=== PATIENT | female | born 1940 | race Caucasian/White ===

== ENCOUNTER 2016-04-26 14:52 | Emergency (ER) | payer MEDICARE, OTHER ==
[2016-04-26] MEDS ORDERED: NITROGLYCERIN 0.4 MG TAB.SUBL SUBLINGUAL ONE (15:13)
[2016-04-26] MEDS ORDERED: NITROGLYCERIN OINT 1 GM PACKET ONE (15:13)
[2016-04-26 15:16] LABS: BASOPHIL# 0.1 X 10^3uL (0.0-0.1); BASOPHILS 0.8 % (0.0-2.0); EOSINOPHILS 1.1 % (0.0-6.0); EOSINOPHILS# 0.1 X 10^3uL (0.0-0.4); HEMATOCRIT 40.5 % (36.0-48.0); HEMOGLOBIN 13.6 g/dL (12.0-16.0); LYMPHOCYTES 44.7 % (20.0-40.0); LYMPHOCYTES# 2.9 X 10^3uL (0.8-3.8); MEAN CELL VOLUME 89.1 fL (84.0-102.0); MEAN CORPUS. HGB CONCENTRATION 33.6 g/dL (32.0-36.0); MEAN CORPUSCULAR HEMOGLOBIN 29.9 pg (29.0-35.0); MEAN PLATELET VOLUME 8.4 fL (7.4-10.4); MONOCYTES 10.4 % (2.0-10.0); MONOCYTES# 0.7 X 10^3uL (0.2-1.0); NEUTROPHILS# 2.8 X 10^3uL (2.6-6.7); PLATELET COUNT 297 X 10^3uL (130-440); RED BLOOD COUNT 4.55 X 10^6uL (4.20-6.10); RED CELL DISTRIBUTION WIDTH 12.6 % (11.5-14.5); WHITE BLOOD COUNT 6.6 X 10^3uL (3.9-10.7)
[2016-04-26] MEDS ORDERED: MORPHINE SULFATE 2 MG/ML SYR ONE (15:24)
[2016-04-26] MEDS ORDERED: ONDANSETRON HCL 4 MG/2 ML VIAL ONE (15:24)
[2016-04-26] MEDS ORDERED: HYDROmorphone HCL 1 MG/ML SYR ONE ×3 (15:49→18:40)
[2016-04-26 16:04] LABS: BLOOD UREA NITROGEN 23 mg/dL (7-17); CALCIUM 9.3 mg/dL (8.4-10.2); CHLORIDE 106 mmol/L (98-107); CREATININE 0.8 mg/dL (0.5-1.0); EST GLOMERULAR FILTRATION RATE > 60 mL/min; GLUCOSE 109 mg/dL (70-100); MAGNESIUM 2.3 mg/dL (1.6-2.3); POTASSIUM 3.5 mmol/L (3.5-5.1); SODIUM 144 mmol/L (137-145)
[2016-04-26 16:05] LABS: ALBUMIN 4.3 g/dL (3.5-5.0); ALKALINE PHOSPHATASE 84 U/L (38-126); ALT 58 U/L (9-52); AST 95 U/L (14-36); BILIRUBIN, DIRECT 0.3 mg/dL (0.0-0.4); BILIRUBIN, TOTAL 0.7 mg/dL (0.2-1.3); TOTAL PROTEIN 7.4 g/dL (6.3-8.2); TROPONIN I < 0.012 ng/mL (0.00-0.034)
[2016-04-26 16:21] LABS: LIPASE 6912 U/L (23-300)
--- NOTE | 2016-04-26 18:05 | RADIOLOGY REPORT ---
A limited single portable view of the chest is compared with the prior film dated 06/11/2013. The heart, vessels and lungs are stable and unremarkable. No infiltrate, fluid or pneumothorax is seen. IMPRESSION: Unremarkable limited single portable view of the chest. MTDD
--- NOTE | 2016-04-26 18:13 | CT REPORT ---
HISTORY: Right upper quadrant abdominal pain. Elevated liver function studies. TECHNIQUE: Multiphase CT of the abdomen was performed after the uneventful administration of 97 mL of Isovue-370. FINDINGS: Lung Bases: The lung bases are clear. Liver: The liver size is within normal limits. There is no contrast-enhancing mass. Intrahepatic biliary ducts are mildly dilated. Gallbladder: There is hydrops of the gallbladder. There are multiple calcified stones layering out in the dependent portion of the gallbladder. No evidence of cholecystitis. Common bile duct is dilated measuring 8 to 9 mm in diameter. No definite intraluminal filling defect is identified but a noncalcified gallstone may not be apparent. Spleen: The spleen is normal in appearance. Pancreas: There is uniform enhancement of the pancreas. Pancreatic duct is not dilated. There is diffuse peripancreatic edema and fat stranding consistent with pancreatitis. No evidence of phlegmon. There is normal enhancement of the celiac axis, splenic artery and vein. No calcifications. Kidneys: The kidneys are normal in size. No renal mass is identified. There is no hydronephrosis. Adrenals: There are no adrenal masses. Vasculature: Abdominal aorta and IVC are unremarkable. No periaortic mass or adenopathy. GI Tract: There is a large volume of retained stool throughout the colon. No free air pneumatosis. No evidence of obstruction. Retroperitoneal: No significant lymphadenopathy or ascites is identified. Bony Structures: Visualized bony structures are unremarkable in appearance. IMPRESSION: 1. Cholelithiasis. 2. Hydrops of the gallbladder. 3. Dilated intra and extrahepatic dilated ducts. The common bile duct measures up to 9 mm in diameter. 4. Pancreatitis. Findings reviewed with Dr. Mcknight at 5:15 PM. Final Electronic Signature: This report was electronically signed by Glen Black MD on 04/26/2016 5:14 PM. [email or web address] / MARK
--- NOTE | 2016-04-26 18:49 | ER NURSING DOCUMENTATION ---
Nurse's Notes [facility] Name:Nadiya Chong Age:75 yrs Sex:Female :1940 Arrival Date:04/26/2016 Time:14:52 BedTrauma C Private MD:Hayes Wells Diagnosis:Pancreatitis, Acute;Cholelithiasis With Obstruction Presentation: 04/26 14:53 Notified ED Physician of Dr. Mcknight notified. la 14:54 Presenting complaint: Patient states: chest pain for 30 mins. Transition of care: Home. cb AIR CAT ACTIVATION no. Asprin Given Taken by pt sea captain 325 mg po. 14:54 Method Of Arrival: Private Vehicle cb 14:54 Acuity: LOGAN 2 cb 15:29 Risk considerations: negative evaluation for symptoms or risks of deep vein thrombosis cb or pulmonary embolism. Triage Assessment: 15:06 General: Appears in no apparent distress, well groomed, Behavior is cooperative. Pain: cb Complains of pain in diaphragm and xyphoid area Pain radiates to diaphragm Pain currently is 4 out of 10 on a pain scale. EENT: No deficits noted. Neuro: Level of Consciousness is awake, alert, Oriented to person, place, time. Cardiovascular: Pulses are 2+ in right radial artery Rhythm is regular. 15:06 Respiratory: Airway is patent Trachea midline Respiratory effort is even, unlabored, cb Respiratory pattern is regular, symmetrical, Breath sounds are clear bilaterally. 15:06 GI: Denies nausea. : No deficits noted. Derm: No deficits noted. Musculoskeletal: No cb deficits noted. Historical: - Allergies: No known drug Allergies; - Home Meds: 1. vitmains - PMHx: OSTEOARTHRITIS; - PSHx: arthroscopy of knee; - Tetanus: < 10 years. - Ebola Screening: : Patient negative for fever greater than or equal to 101.5 degrees Fahrenheit, and additional compatible Ebola Virus Disease symptoms. Patient denies exposure to infectious person. Patient denies travel to an Ebola-affected area in the 21 days before illness onset. No symptoms or risks identified at this time. . - Immunization history: Flu Vaccine < 1 year. - Social history: Smoking status: Patient states was never smoker of tobacco. Screenin:30 Infectious Disease Risk None. Abuse screen: Denies threats or abuse. Denies injuries cb from another. Nutritional screening: On vegetarian. Assessment: 14:55 Pain: Pain began 30 min ago. cb 15:58 Cardiovascular: Rhythm is sinus rhythm with unifocal PVCs. cb Vital Signs: 14:56 BP 180 / 80 Sitting; Pulse 76 MON; Resp 20 S; Temp 97.5(O); Pulse Ox 95% on R/A; Weight cb 64.41 kg; Height 5 ft. 6 in. (167.64 cm); Pain 4/10; 15:06 BP 187 / 80; Pulse 79; Resp 23; Pulse Ox 94% on R/A; cb 15:13 BP 133 / 87; Pulse 80; Resp 19; cb 15:20 BP 142 / 70; Pulse 61; Resp 15; Pulse Ox 96% 2 lpm ; cb 15:25 BP 147 / 72; Pulse 57; Resp 16; Pulse Ox 97% on 2 lpm NC; cb 15:45 BP 152 / 66; Pulse 65; Resp 17; Pulse Ox 99% 2 lpm ; cb 16:00 BP 145 / 59; Pulse 64; Resp 15; Pulse Ox 99% on 2 lpm NC; cb 16:15 BP 147 / 63; Pulse 65; Resp 17; Pulse Ox 98% on 2 lpm NC; cb 16:30 BP 149 / 65; Pulse 70; Resp 17; Pulse Ox 98% on 2 lpm NC; cb 17:00 BP 150 / 64; Pulse 72; Resp 18; cb 17:15 BP 154 / 62; Pulse 66; Resp 19; cb 17:30 BP 155 / 60; Pulse 63; Pulse Ox 97% on 2 lpm NC; cb 17:58 BP 157 / 58; Pulse 63; Resp 18; Pulse Ox 97% on 2 lpm NC; cb 18:25 BP 155 / 58; Pulse 63; Pulse Ox 96% on 2 lpm NC; cb 14:56 Body Mass Index 22.92 (64.41 kg, 167.64 cm) cb Tignall Coma Score: 16:06 Eye Response: spontaneous(4). Verbal Response: oriented(5). Motor Response: obeys cd commands(6). Total: 15. ED Course: 14:53 Patient arrived in ED. hb 14:53 Hayes Wells MD is Private Physician. hb 14:53 EKG done. (by ED staff). Reviewed by Lennox Mcknight MD. cb 14:54 Serena Luong, RN is Primary Nurse. cb 14:55 Triage completed. cb 15:00 Inserted saline lock: 20 gauge in right antecubital area and blood collected. la 15:00 Labs drawn. (by ED staff). Sent per order to lab. cb 15:07 Lennox Mcknight MD is Attending Physician. cd 15:10 Oxygen Oxygen administration via nasal cannula @ 2L/min. cb 15:11 Inserted saline lock: 20 gauge in right hand. la 15:15 Port Xray Completed. ernesto 15:31 Valuables Remains with patient Patient has correct armband on for positive cb identification. Placed in gown. Bed in low position. Call light in reach. desk monitor on. Pulse ox on. NIBP on. Lights dimmed. Diet: Patient is NPO. 16:[address] tt 17:01 EKG attached cb Administered Medications: 15:05 Drug: Nitroglycerin 0.4 mg; Route: Sublingual; cb 15:43 Follow up: Response: Pain is unchanged, physician notified cb 15:07 CANCELLED (Physician Discretion): Nitroglycerin Ointment 2 % 0.5 inches Transdermal oncecd 15:22 Drug: Zofran 4 mg; Route: IVP; Infused Over: 2 mins; Site: right antecubital; cb 16:22 Follow up: Response: No adverse reaction cb 15:25 Drug: morphine 1 mg; Route: IVP; Site: right antecubital; cb 15:43 Follow up: Response: Pain is unchanged, physician notified cb 15:28 Not Given (Physician Discretion): Nitroglycerin Ointment 2 % 1 inches Transdermal once cb 15:44 Drug: Dilaudid 0.5 mg; Route: IVP; Site: right antecubital; cb 16:20 Follow up: Response: Pain is decreased cb 15:45 Drug: NS 0.9% 500 ml; Route: IV; Rate: bolus; Site: right antecubital; cb 17:19 Follow up: IV Status: Infusion discontinued; IV Intake: 500ml cb 16:10 Drug: Dilaudid 0.5 mg; Route: IVP; Site: right antecubital; cb 16:22 Follow up: Response: Pain is decreased cb 17:26 Drug: Dilaudid 0.5 mg; Route: IVP; Site: right antecubital; cb 17:58 Follow up: Response: Pain is decreased cb 18:36 Drug: Dilaudid 0.5 mg; Route: IVP; Site: right antecubital; cb 18:40 Follow up: Response: No adverse reaction cb Intake: 17:19 IV: 500ml; Total: 500ml. cb Outcome: 17:44 ER care complete, transfer ordered by . reanna 18:38 Condition: stable cb 18:38 Discharge instructions given to patient, Instructed on need for transfer Demonstrated understanding of instructions. 18:48 Patient left the ED. cb 18:49 [facility] Time: April 26, 2016 at 17:44 Patient's face sheet was faxed to accepting facility. Face Sheet included patient's name, address, age, gender, contact information and insurance information. Patient will be transported by: [facility] ground. Report called to: JAMEE Harris Nurse and Physician Charting and Notes were sent to Accepting Facility. All tests and/or procedures with results, if applicable, were sent to accepting facility. 18:49 Report given to JAMEE Harris cb Signatures: Serena Luong RN RN Lennox Pablo MD MD cd Terriere, Tracy tt Bird, Heather hb Abbott, Annabelle Becker, Sirisha narvaez
--- NOTE | 2016-04-26 18:49 | ER PHYSICIAN DOCUMENTATION ---
Physician Documentation [facility] Name:Nadiya Chong Age:75 yrs Sex:Female :1940 Arrival Date:04/26/2016 Time:14:52 BedTrauma C Private MD:Hayes Wells ED, Chris Disposition: 04/26 17:43 Critical Care: not applicable. cd Disposition: 04/26/16 17:44 Transfer ordered to [facility]. Diagnosis are Pancreatitis, Acute, Cholelithiasis With Obstruction. - Reason for transfer: Specialty. - Accepting physician is Dr. Timothy Ardon [facility] Hospitalist. - Condition is Good. - Problem is new. - Symptoms have improved. COBRA Form completed? Yes Transfer - Mode of Transportation Ambulance HPI: 15:05 This 75 yrs old Female presents to ER via Private Vehicle with complaints of cd Chest Pain. 15:05 The patient or guardian reports chest pain that is located primarily in the epigastric cd area. Onset: acutely, 30 minute(s) ago. The pain does not radiate. There has been no movement of pain. Associated signs and symptoms: Pertinent positives: abdominal pain, diaphoresis, Pertinent negatives: cough, lower extremity pain, lower extremity swelling, nausea, near syncope, palpitations, recent travel, shortness of breath, syncope, vomiting. The chest pain is described as aching, a pressure. Duration: The patient or guardian reports a single episode, that is still ongoing. Modifying factors: The symptoms are alleviated by nothing. the symptoms are aggravated by palpation of area, to her RUQ. Severity of pain: At its worst the pain was moderate in the emergency department the pain is unchanged. Risk factors for coronary artery disease include: This patient does not have any risk factors for coronary artery disease. The patient has not experienced similar symptoms in the past. Historical: - Allergies: No known drug Allergies; - Home Meds: 1. vitmains - PMHx: OSTEOARTHRITIS; - PSHx: arthroscopy of knee; - Tetanus: < 10 years. - Ebola Screening: : Patient negative for fever greater than or equal to 101.5 degrees Fahrenheit, and additional compatible Ebola Virus Disease symptoms. Patient denies exposure to infectious person. Patient denies travel to an Ebola-affected area in the 21 days before illness onset. No symptoms or risks identified at this time. . - Immunization history: Flu Vaccine < 1 year. - Social history: Smoking status: Patient states was never smoker of tobacco. ROS: 15:35 All other systems are negative. cd 16:04 ENT: Negative for injury, pain, epistaxis and discharge. cd Neck: Negative for injury, pain, stiffness and swelling. Back: Negative for injury, pain or muscle spasms. : Negative for injury, bleeding, discharge, dysuria, frequency, urgency and swelling. MS/Extremity: Negative for injury, deformity, edema, calf tenderness, pain or coldness. Skin: Negative for injury, rash, itching and discoloration. 16:04 Neuro: Negative for headache, weakness, numbness, tingling, and seizure. cd 16:04 Constitutional: Negative for body aches, chills, fever, poor PO intake. 16:04 Cardiovascular: Positive for chest pain, Negative for edema, orthopnea, palpitations. 16:04 Respiratory: Negative for cough, dyspnea on exertion, hemoptysis, pleurisy, shortness of breath, wheezing. 16:04 Abdomen/GI: Positive for abdominal pain, anorexia, Negative for nausea, vomiting, abdominal cramps, abdominal distension, hematemesis, black/tarry stool, rectal bleeding. Exam: Head/Face: Normocephalic, atraumatic. Eyes: Pupils equal round and reactive to light, extra-ocular motions intact. Lids and lashes normal. Conjunctiva and sclera are non-icteric and not injected. Cornea within normal limits. Periorbital areas with no swelling, redness, or edema. ENT: Nares patent. No nasal discharge, no septal abnormalities noted. Tympanic membranes are normal and external auditory canals are clear. Oropharynx with no redness, swelling, or masses, exudates, or evidence of obstruction, uvula midline. Mucous membranes moist. Neck: Trachea midline, no thyromegaly or masses palpated, and no cervical lymphadenopathy. Supple, full range of motion without nuchal rigidity, or vertebral point tenderness. No Meningismus. Chest/axilla: Normal chest wall appearance and motion. Nontender with no deformity. No lesions are appreciated. Back: No spinal tenderness. No costovertebral tenderness. Full range of motion. Skin: Warm, dry with normal turgor. Normal color with no rashes, no lesions, and no evidence of cellulitis. MS/ Extremity: Pulses equal, no cyanosis. Neurovascular intact. Full, normal range of motion. 16:06 Neuro: Awake and alert, GCS 15, oriented to person, place, time, and situation. cd Cranial nerves II-XII grossly intact. Motor strength 5/5 in all extremities. Sensory grossly intact. Cerebellar exam normal. Normal gait. 16:06 Constitutional: The patient appears alert, awake, non-toxic, well developed, well nourished, anxious, diaphoretic, in obvious distress, moderately distressed. 16:06 Cardiovascular: Rate: normal, Rhythm: regular, Pulses: no pulse deficits are appreciated, Heart sounds: normal, Edema: is not appreciated. 16:06 Respiratory: the patient does not display signs of respiratory distress, Respirations: normal, no acute changes, Breath sounds: are normal, clear throughout. 16:06 Abdomen/GI: Inspection: abdomen appears normal, Bowel sounds: active, Palpation: moderate abdominal tenderness, in the right upper quadrant, Indicators: McBurney's point is not tender, Lee's sign is positive. Vital Signs: 14:56 BP 180 / 80 Sitting; Pulse 76 MON; Resp 20 S; Temp 97.5(O); Pulse Ox 95% on R/A; Weight cb 64.41 kg; Height 5 ft. 6 in. (167.64 cm); Pain 4/10; 15:06 BP 187 / 80; Pulse 79; Resp 23; Pulse Ox 94% on R/A; cb 15:13 BP 133 / 87; Pulse 80; Resp 19; cb 15:20 BP 142 / 70; Pulse 61; Resp 15; Pulse Ox 96% 2 lpm ; cb 15:25 BP 147 / 72; Pulse 57; Resp 16; Pulse Ox 97% on 2 lpm NC; cb 15:45 BP 152 / 66; Pulse 65; Resp 17; Pulse Ox 99% 2 lpm ; cb 16:00 BP 145 / 59; Pulse 64; Resp 15; Pulse Ox 99% on 2 lpm NC; cb 16:15 BP 147 / 63; Pulse 65; Resp 17; Pulse Ox 98% on 2 lpm NC; cb 16:30 BP 149 / 65; Pulse 70; Resp 17; Pulse Ox 98% on 2 lpm NC; cb 17:00 BP 150 / 64; Pulse 72; Resp 18; cb 17:15 BP 154 / 62; Pulse 66; Resp 19; cb 17:30 BP 155 / 60; Pulse 63; Pulse Ox 97% on 2 lpm NC; cb 17:58 BP 157 / 58; Pulse 63; Resp 18; Pulse Ox 97% on 2 lpm NC; cb 18:25 BP 155 / 58; Pulse 63; Pulse Ox 96% on 2 lpm NC; cb 14:56 Body Mass Index 22.92 (64.41 kg, 167.64 cm) cb Monik Coma Score: 16:06 Eye Response: spontaneous(4). Verbal Response: oriented(5). Motor Response: obeys cd commands(6). Total: 15. MDM: 14:58 Data interpreted: telecommunications professional: rate is 60 beats/min, rhythm is normal sinus rhythm, cd regular, with no ectopy, Interpretation: normal rate, normal rhythm, Pulse oximetry: on room air is 95 %. Interpretation: normal. 15:00 Patient took aspirin within the past 24 hours. Patient did not receive fibrinolytic due cd to not indicated. 15:07 Patient medically screened. cd 15:15 Differential diagnosis: abnormal EKG, acute myocardial infarction, acute pericarditis, cd coronary artery disease cholecystitis, Cholelithiasis gastritis, gastroesophageal reflux disease (GERD), pancreatitis, peptic ulcer disease, pulmonary embolus, unstable angina. 15:20 MAHNAZ Risk Score: 1 - patient's age is greater or equal to 65 years, TOTAL SCORE = 1. cd Data reviewed: vital signs, nurses notes, old medical records, EKG, radiologic studies, and as a result, I will *Transfer Patient administer IV fluids, NS bolus, NS maintenence, prescribe pain medication, Dilaudid. ECG:. 17:01 EKG attached cb 17:05 Medication response: The patient's symptoms have improved, Dilaudid. Response to cd treatment: the patient's symptoms have markedly improved after treatment, patient is well hydrated. and as a result, I will transfer patient. 17:17 Counseling: I had a detailed discussion with the patient and/or guardian regarding: the cd historical points, exam findings, and any diagnostic results supporting the discharge/admit diagnosis, lab results, radiology results, the need to transfer to another facility, for higher level of care, [facility] does not immediately have the required specialist. 17:38 Test interpretation: by ED physician or midlevel provider: CT Scan of the Abdomen with cd and without Dye revealed Acute Pancreatitis without complications, Dilated Bile Ducts, a dilated CBD to 8-9 mm, an Enlarged GB with stones, GB wall not thickened, No Phlegmon. 04/26 15:26 Order name: CBC AUTO DIF, MDIF/RMOR IF IND; Complete Time: 16:28 EDMS 04/26 15:33 Interpretation: Normal. 04/26 15:58 Order name: DDIMER; Complete Time: 16:28 EDMS 04/26 16:08 Interpretation: Normal. 04/26 16:06 Order name: BASIC METABOLIC PANEL; Complete Time: 16:28 EDMS 02 16:08 Interpretation: Normal. 04/26 16:06 Order name: MAGNESIUM; Complete Time: 16:28 EDMS 04/26 16:08 Interpretation: Normal. 04/26 16:06 Order name: TROPONIN I; Complete Time: 16:28 EDMS 04/26 16:08 Interpretation: Normal. 04/26 16:08 Order name: HEPATIC PANEL; Complete Time: 16:28 EDMS 04/26 16:28 Interpretation: Normal Except: ALT 58; AST 95. 04/26 16:22 Order name: LIPASE; Complete Time: 16:28 EDMS 02 16:28 Interpretation: Abnormal: LIPASE 6912; Acute Pancreatitis, Elevated. 04/26 15:01 Order name: 12-lead EKG; Complete Time: 15:05 cb 04/26 15:01 Order name: Iv Saline Lock; Complete Time: 15:05 cb 04/26 15:01 Order name: Place Patient On Monitor; Complete Time: 15:05 cb 04/26 15:01 Order name: Pulse Ox Continuous; Complete Time: 15:05 cb EC:55 Rate is 74 beats/min. Rhythm is regular. QRS [place] is Normal. [place] interval is normal. QRS cd interval is prolonged. QT interval is normal. Q waves are Present in leads V1, V2. T waves are Normal. ST Segment is elevated in leads V1, V2. Clinical impression: LV Strain, LVH, and NSR at 72/min, LBBB (patient has a history of Left Anterior Fasicular Block in 2013) that is not new. Interpreted by me. Dispensed Medications: 15:05 Drug: Nitroglycerin 0.4 mg; Route: Sublingual; cb 15:43 Follow up: Response: Pain is unchanged, physician notified cb 15:07 CANCELLED (Physician Discretion): Nitroglycerin Ointment 2 % 0.5 inches Transdermal oncecd 15:22 Drug: Zofran 4 mg; Route: IVP; Infused Over: 2 mins; Site: right antecubital; cb 16:22 Follow up: Response: No adverse reaction cb 15:25 Drug: morphine 1 mg; Route: IVP; Site: right antecubital; cb 15:43 Follow up: Response: Pain is unchanged, physician notified cb 15:28 Not Given (Physician Discretion): Nitroglycerin Ointment 2 % 1 inches Transdermal once cb 15:44 Drug: Dilaudid 0.5 mg; Route: IVP; Site: right antecubital; cb 16:20 Follow up: Response: Pain is decreased cb 15:45 Drug: NS 0.9% 500 ml; Route: IV; Rate: bolus; Site: right antecubital; cb 17:19 Follow up: IV Status: Infusion discontinued; IV Intake: 500ml cb 16:10 Drug: Dilaudid 0.5 mg; Route: IVP; Site: right antecubital; cb 16:22 Follow up: Response: Pain is decreased cb 17:26 Drug: Dilaudid 0.5 mg; Route: IVP; Site: right antecubital; cb 17:58 Follow up: Response: Pain is decreased cb 18:36 Drug: Dilaudid 0.5 mg; Route: IVP; Site: right antecubital; cb 18:40 Follow up: Response: No adverse reaction cb Signatures: Serena Luong RN RN Lennox Pablo MD MD cd Alexander, Linda la
[2016-04-26] MEDS ORDERED: FENTANYL 250 MCG/5 ML VIAL ONE (21:49)
== END 2016-04-26 18:49 | disposition short-term general hospital (02) ==
LOC: ER 14:52
DX: K85.91 Acute pancreatitis with uninfected necrosis, unspecified (principal); K80.21 Calculus of gallbladder without cholecystitis with obstruction; I44.7 Left bundle-branch block, unspecified; Z74.3 Need for continuous supervision
CPT/HCPCS: 71010; 74170; 80048; 80076; 83690; 83735; 84484; 85025; 85379; 93005; 93010; 96361; 96374; 96375; 96376; 99285; A0425; A0427; J1170; J2270; J2405